=== PATIENT | male | born 1955 | race Caucasian/White ===

== ENCOUNTER → 2024-01-13 | Outpatient (CLI) | payer OTHER ==
[2024-01-13 11:42] LABS: African American GFR (CKD) >90 (>60 ml/min/1.73 sqM); Blood Urea Nitrogen 17 mg/dL (9-20); Non-African American GFR(CKD) 85 (>60 ml/min/1.73 sqM)
--- NOTE | 2024-01-13 12:26 | CT ---
EXAMINATION TYPE: CT angio chest CT DLP: 171.60 mGycm, Automated exposure control for dose reduction was used. DATE OF EXAM: 01/13/2024 12:16 PM COMPARISON: None CLINICAL INDICATION:Male, 68 years old with history of R06.02 SOB; SOB HX OF LEUKEMIA TECHNIQUE/CONTRAST: CTA scan of the thorax is performed with IV Contrast, patient injected with 100 mL of Isovue 370, pul monary embolism protocol. MIP images are created and reviewed. FINDINGS: Pulmonary Artery: There is no evidence for a filling defect within the pulmonary vasculature to sugge st acute pulmonary embolism. The pulmonary artery is mildly prominent measuring 3.0 cm in diameter. This can be seen with pulmonary arterial hypertension. Reflux of contrast in the IVC. Lungs/Pleura: Moderate size bilateral pleural effusions with associated atelectasis. Linear scarring within the left upper lobe. Patchy consolidation within the left upper lobe measuring up to 2.0 cm (s eries 5, image 72). Moderate centrilobular and paraseptal emphysematous changes. No pneumothorax. Airway: Large airways are patent. Heart: Heart is within normal limits for size. Trace pericardial effusion. Coronary artery calcificat ions. Vasculature: Ascending thoracic aortic aneurysm measuring up to 4.1 cm. Aortic root measures up to 3. 5 cm. Descending thoracic aorta measures up to 2.9 cm. Mild atherosclerotic calcification of the aort a and its branches. Right chest wall Mediport catheter tip terminating within the superior cavoatrial junction. Mediastinum: Mildly mildly enlarged precarinal and right hilar lymph nodes measuring 1 cm short axis. Musculoskeletal: No acute osseous abnormalities. Remote healed right-sided rib fractures. No aggressi ve osseous lesion. Mild multilevel degenerative disc disease. Soft Tissues: Mild diffuse anasarca. Lower neck: No significant findings. Upper Abdomen: No significant findings. IMPRESSION: 1. No evidence of pulmonary embolism. 2. Moderate-sized bilateral pleural effusions with associated atelectasis. 3. Left upper lobe patchy consolidation which may represent pneumonia versus atelectasis. Underlying neoplasm is not excluded. No prior imaging available for comparison. 4. Nonspecific mildly enlarged mediastinal and right hilar adenopathy which may related to reported l eukemia versus reactive. 5. Ascending thoracic aortic aneurysm measuring up to 4.1 cm. [facility], , 01/13/2024 12:24 PM
== END | disposition home or self-care (01) ==
LOC: RADCTMAIN 10:48
PROVIDERS: ATTEND Internal Medicine
DX: J90 Pleural effusion, not elsewhere classified (principal); R59.0 Localized enlarged lymph nodes; I71.21 Aneurysm of the ascending aorta, without rupture; R06.02 Shortness of breath; I70.0 Atherosclerosis of aorta; I27.21 Secondary pulmonary arterial hypertension; Z85.6 Personal history of leukemia
CPT/HCPCS: 82565; 84520; 71275; Q9967

== ENCOUNTER → 2024-02-13 | Outpatient (CLI) | payer OTHER ==
[2024-02-13 15:02] LABS: African American GFR (CKD) >90 (>60 ml/min/1.73 sqM); Blood Urea Nitrogen 13 mg/dL (9-20); Non-African American GFR(CKD) 83 (>60 ml/min/1.73 sqM)
--- NOTE | 2024-02-13 16:16 | CT ---
EXAMINATION TYPE: CT chest w con CT DLP: 166.6 mGycm, Automated exposure control for dose reduction was used. DATE OF EXAM: 02/13/2024 3:21 PM COMPARISON: CTA chest 01/13/2024. CLINICAL INDICATION:Male, 68 years old with history of C92.A1 ACUTE MYELOID LEUKEMIA W MULTILIN DYSPL ERLIN; PHH, Prostate CA, acute myeloid leukemia. TECHNIQUE: Multiple axial images were obtained through the chest following the administration of 100 cc of Isovue 300. . Coronal and sagittal reformats reviewed. FINDINGS: Lungs/Pleura: Moderate size bilateral pleural effusions with associated atelectasis redemonstrated. L inear scarring within the left upper lobe. Redemonstration of consolidation within the left upper lob e measuring up to 2.2 cm (series 4, image 15). Moderate centrilobular and paraseptal emphysematous ch anges. No pneumothorax. No new suspicious pulmonary nodules within the visualized aerated lungs. Airway: Large airways are patent. Heart: Heart is within normal limits for size. Trace pericardial effusion. Coronary artery calcificat ions. Vasculature: Ascending thoracic aortic aneurysm measuring up to 4.0 cm. Mild atherosclerotic calcific ation of the aorta and its branches. Right chest wall Mediport catheter tip terminating within the nath perior cavoatrial junction. No evidence of central filling defect to suggest pulmonary embolism. Mediastinum: Stable mildly enlarged precarinal and right hilar lymph nodes measuring 1.2 cm short axi s. Musculoskeletal: No acute osseous abnormalities. Remote healed right-sided rib fractures. No aggressi ve osseous lesion. Mild multilevel degenerative disc disease. No aggressive osseous lesion. Soft Tissues: Mild diffuse anasarca. Lower neck: No significant findings. Upper Abdomen: No significant findings. IMPRESSION: 1. Similar patchy left upper lobe consolidation from prior exam. May represent pneumonia versus under lying neoplasm. Correlate with prior imaging. 2. Similar moderate sized bilateral pleural effusions with associated atelectasis. 3. Stable nonspecific mildly enlarged mediastinal right hilar lymph nodes. May be related to reported leukemia versus reactive in etiology. [facility], , 02/13/2024 4:14 PM
== END | disposition home or self-care (01) ==
LOC: RADCTMAIN 14:12
PROVIDERS: ATTEND Internal Medicine
DX: C92.A1 Acute myeloid leukemia with multilineage dysplasia, in remission (principal); C61 Malignant neoplasm of prostate; I10 Essential (primary) hypertension; J90 Pleural effusion, not elsewhere classified
CPT/HCPCS: 82565; 84520; 71260; Q9967

== ENCOUNTER 2024-02-25 12:46 | Inpatient (IN) | payer OTHER, MEDICARE ==
--- NOTE | 2024-02-25 13:16 | ED ---
General Adult HPI - General Chief complaint: Weakness Stated complaint: Weakness Time Seen by Provider: 02/25/24 13:00 Source: patient, family, EMS, RN notes reviewed, old records reviewed Mode of arrival: EMS Limitations: no limitations - History of Present Illness Initial comments: This is a 68-year-old male who has a past medical history significant for leukemia. Patient comes in today because he has a fever he vomited x 1 is extremely weak and is in a lot more pain in his legs and a little bit of his abdomen. Patient denies any chest pain or difficulty breathing. Patient denies any cough. Patient denies any dysuria or hematuria. Patient has fallen the last couple days but only has a skin tear no other pain or problems from the falls. Patient never hit his head or hurt his neck - Related Data Home Medications Medication Instructions Recorded Confirmed Acyclovir [Zovirax] 800 mg PO BID 02/25/24 02/25/24 Calcium Carbonate/Vitamin D3 1 tab PO BID 02/25/24 02/25/24 [Calcium 500-Vit D3 5 Mcg (200 Iu)] Enasidenib Mesylate [Idhifa] 100 mg PO DAILY 02/25/24 02/25/24 Famotidine [Pepcid] 20 mg PO DAILY 02/25/24 02/25/24 Folic Acid 1 mg PO DAILY 02/25/24 02/25/24 LORazepam [Ativan] 0.5 mg PO TID PRN 02/25/24 02/25/24 dexAMETHasone See Taper PO DIRECTED 02/25/24 02/25/24 Allergies Allergy/AdvReac Type Severity Reaction Status Date / Time No Known Allergies Allergy Verified 02/25/24 14:44 Review of Systems ROS Statement: Those systems with pertinent positive or pertinent negative responses have been documented in the HPI. ROS Other: All systems not noted in ROS Statement are negative. Past Medical History Past Medical History: Cancer, Pneumonia Additional Past Medical History / Comment(s): Thyroid Cancer, Mixed Phenotype Acute Leukemia (MPAL). hx of prostate cancer Past Surgical History: Prostate Surgery Smoking Status: Former smoker Past Alcohol Use History: None Reported Past Drug Use History: None Reported General Exam - General Exam Comments Initial Comments: GENERAL: Patient is well-developed and well-nourished. Patient is nontoxic and well- hydrated and is in mild distress. ENT: Neck is soft and supple. No significant lymphadenopathy is noted. Oropharynx is clear. Moist mucous membranes. Neck has full range of motion without eliciting any pain. EYES: The sclera were anicteric and conjunctiva were pink and moist. Extraocular movements were intact and pupils were equal round and reactive to light. Eyelids were unremarkable. PULMONARY: Unlabored respirations. Good breath sounds bilaterally. No audible rales rhonchi or wheezing was noted. CARDIOVASCULAR: There is a regular rate and rhythm without any murmurs gallops or rubs. ABDOMEN: Soft and nontender with normal bowel sounds. SKIN: Skin abrasion on the right forearm NEUROLOGIC: Patient is alert and oriented x3. Cranial nerves II through XII are grossly intact. Motor and sensory are also intact. Normal speech, volume and content. Symmetrical smile. MUSCULOSKELETAL: Normal extremities with adequate strength and full range of motion. LYMPHATICS: No significant lymphadenopathy is noted PSYCHIATRIC: Normal psychiatric evaluation. Limitations: no limitations Course Vital Signs 02/25/24 02/25/24 02/25/24 12:52 14:15 14:28 Temperature 102.8 F H Pulse Rate 128 H Respiratory 18 Rate Blood Pressure 173/113 O2 Sat by Pulse 94 L Oximetry Fraction of 100 100 Inspired Oxygen (FIO2) 02/25/24 02/25/24 02/25/24 14:39 14:45 14:51 Temperature Pulse Rate 170 H 165 H 163 H Respiratory 26 H 26 H 26 H Rate Blood Pressure 181/118 153/103 146/94 O2 Sat by Pulse 100 100 100 Oximetry Fraction of Inspired Oxygen (FIO2) 02/25/24 02/25/24 02/25/24 15:06 15:13 15:28 Temperature 101.4 F H Pulse Rate 160 H 154 H Respiratory 18 Rate Blood Pressure 146/82 133/97 O2 Sat by Pulse 97 Oximetry Fraction of Inspired Oxygen (FIO2) Medical Decision Making - Medical Decision Making EKG is interpreted by myself EKG shows a sinus tachycardia at 132 bpm OR 125 QRS 91 QT interval 08 QTc is 386 per patient EKG shows no ST segment ovation or depression. . Was pt. sent in by a medical professional or institution (, PA, FINANCIAL SERVICES TECHNICIAN, urgent care, hospital, or alf...) When possible be specific @ -No Did you speak to anyone other than the patient for history (EMS, parent, family, police, friend...)? What history was obtained from this source @ -No Did you review nursing and triage notes (agree or disagree)? Why? @ -I reviewed and agree with nursing and triage notes Were old charts reviewed (outside hosp., previous admission, EMS record, old EKG, old radiological studies, urgent care reports/EKG's, alf records)? Report findings @ -No old charts were reviewed Differential Diagnosis? @ -Differential Dyspnea: Coronary syndrome, arrhythmia, tamponade, asthma, COPD, pulmonary embolism, pneumonia, pneumothorax, pulmonary effusion, anaphylaxis, diabetic ketoacidosis, flailed chest, pulmonary contusion, diaphragmatic rupture, anemia, neuromuscular, this is not meant to be an all-inclusive list. EKG interpreted by me (3pts min.). @ -As above X-rays interpreted by me (1pt min.). @ -Chest x-ray shows pulmonary edema questionable infiltrate CT interpreted by me (1pt min.). @ -None done U/S interpreted by me (1pt. min.). @ -None done What testing was considered but not performed or refused? (CT, X-rays, U/S, labs)? Why? @ -None What meds were considered but not given or refused? Why? @ -None Did you discuss the management of the patient with other professionals (prof cobian i.e. , PA, FINANCIAL SERVICES TECHNICIAN, lab, RT, psych nurse, secondary social studies teacher, barge master, teacher, radio division officer, caser up)? Give summary @ -I spoke with Dr. Britt he agreed to admit the patient admit the patient wrote admitting orders Was smoking cessation discussed for >3mins.? @ -No Was critical care preformed (if so, how long)? @ -35 minutes Were there social determinants of health that impacted care today? How? (Homelessness, low income, unemployed, alcoholism, drug addiction, transportation, low edu. Level, literacy, decrease access to med. care, fci, rehab)? @ -No Was there de-escalation of care discussed even if they declined (Discuss DNR or withdrawal of care, Hospice)? DNR status @ -No What co-morbidities impacted this encounter? (DM, HTN, Smoking, COPD, CAD, Cancer, CVA, ARF, Chemo, Hep., AIDS, mental health diagnosis, sleep apnea, morbid obesity)? @ -None Was patient admitted / discharged? Hospital course, mention meds given and route, prescriptions, significant lab abnormalities, going to OR and other pertinent info. @ -Patient had pulmonary edema and was having difficulty oxygenating so he was placed on BiPAP. Patient was also given 2 g of Rocephin because of the 102.5 fever and possible infiltrate on x-ray. Patient was also given Lasix. Patient was also given hydralazine for the high blood pressure. I spoke with Dr. Britt he agreed to admit the patient. Family was in the room there were 4 family members and they agreed that the patient should be just kept comfortable he wanted no aggressive measures Undiagnosed new problem with uncertain prognosis? @ -No Drug Therapy requiring intensive monitoring for toxicity (Heparin, Nitro, Insulin, Cardizem)? @ -No Were any procedures done? @ -No Diagnosis/symptom? @ -Acute pulmonary edema Acute, or Chronic, or Acute on Chronic? @ -Acute Uncomplicated (without systemic symptoms) or Complicated (systemic symptoms)? @ -Comp Side effects of treatment? @ -No Exacerbation, Progression, or Severe Exacerbation? @ -No Poses a threat to life or bodily function? How? (Chest pain, [place], [place], pneumonia, PE, COPD, DKA, ARF, appy, cholecystitis, CVA, Diverticulitis, Homicidal, Suicidal, threat to staff... and all critical care pts) @ -Yes this can lead to hypoxia and endorgan dysfunction or Diagnosis/symptom? @ -Pneumonia Acute, or Chronic, or Acute on Chronic? @ -Acute Uncomplicated (without systemic symptoms) or Complicated (systemic symptoms)? @ -Comp Side effects of treatment? @ -None Exacerbation, Progression, or Severe Exacerbation] @ -No Poses a threat to life or bodily function? @ -Yes this can lead to sepsis and poor perfusion and endorgan dysfunction Diagnosis/symptom? @ -Hypertensive emergency Acute, or Chronic, or Acute on Chronic? @ -Acute Uncomplicated (without systemic symptoms) or Complicated (systemic symptoms)? @ -Complicated Side effects of treatment? @ -None Exacerbation, Progression, or Severe Exacerbation] @ -No Poses a threat to life or bodily function? @ -Yes this can lead to poor perfusion as well as bony edema and lead to decompensation and endorgan dysfunction Repeat EKG was done it was interpreted by myself that shows sinus tachycardia at 149 bpm OR 118 QRS is 82 QT interval is 325 QTc is 410. Patient's EKG shows no ST segment elevation or depression. - Lab Data Result diagrams: 02/25/24 14:27 02/25/24 15:00 Lab Results 02/25/24 02/25/24 02/25/24 Range/Units 13:00 14:27 14:27 WBC 40.6 H (3.8-10.6) k/uL RBC 3.93 L (4.30-5.90) m/uL Hgb 13.3 (13.0-17.5) gm/dL Hct 41.8 (39.0-53.0) % MCV 106.5 H (80.0-100.0) fL MCH 33.9 (25.0-35.0) pg MCHC 31.8 (31.0-37.0) g/dL RDW 18.8 H (11.5-15.5) % Plt Count 297 (150-450) k/uL MPV 8.4 Neutrophils % (Manual) 88 % Lymphocytes % (Manual) 10 % Monocytes % (Manual) 3 % Neutrophils # (Manual) 35.73 H (1.3-7.7) k/uL Lymphocytes # (Manual) 4.06 (1.0-4.8) k/uL Monocytes # (Manual) 1.22 H (0-1.0) k/uL Nucleated RBCs 3 H (0-0) /100 WBC Manual Slide Review Performed Hypochromasia Moderate Anisocytosis Slight Macrocytosis Marked A PT (10.0-12.5) sec INR (<1.2) APTT (22.0-30.0) sec Sodium (137-145) mmol/L Potassium (3.5-5.1) mmol/L Chloride (98-107) mmol/L Carbon Dioxide (22-30) mmol/L Anion Gap mmol/L BUN (9-20) mg/dL Creatinine (0.66-1.25) mg/dL Est GFR (CKD-EPI)AfAm (>60 ml/min/1.73 sqM) Est GFR (CKD-EPI)NonAf (>60 ml/min/1.73 sqM) Glucose (74-99) mg/dL Plasma Lactic Acid Deyvi 3.1 H* (0.7-2.0) mmol/L Calcium (8.4-10.2) mg/dL Total Bilirubin (0.2-1.3) mg/dL AST (17-59) U/L ALT (4-49) U/L Alkaline Phosphatase (38-126) U/L Total Protein (6.3-8.2) g/dL Albumin (3.5-5.0) g/dL Urine Color Colorless Urine Appearance Clear (Clear) Urine pH 7.0 (5.0-8.0) Ur Specific [place] 1.009 (1.001-1.035) Urine Protein Trace H (Negative) Urine Glucose (UA) Negative (Negative) Urine Ketones Negative (Negative) Urine Blood Negative (Negative) Urine Nitrite Negative (Negative) Urine Bilirubin Negative (Negative) Urine Urobilinogen <2.0 (<2.0) mg/dL Ur Leukocyte Esterase Negative (Negative) Influenza Type A (PCR) (Not Detectd) Influenza Type B (PCR) (Not Detectd) RSV (PCR) (Not Detectd) SARS-CoV-2 (PCR) (Not Detectd) 02/25/24 02/25/24 02/25/24 Range/Units 14:27 14:30 15:00 WBC (3.8-10.6) k/uL RBC (4.30-5.90) m/uL Hgb (13.0-17.5) gm/dL Hct (39.0-53.0) % MCV (80.0-100.0) fL MCH (25.0-35.0) pg MCHC (31.0-37.0) g/dL RDW (11.5-15.5) % Plt Count (150-450) k/uL MPV Neutrophils % (Manual) % Lymphocytes % (Manual) % Monocytes % (Manual) % Neutrophils # (Manual) (1.3-7.7) k/uL Lymphocytes # (Manual) (1.0-4.8) k/uL Monocytes # (Manual) (0-1.0) k/uL Nucleated RBCs (0-0) /100 WBC Manual Slide Review Hypochromasia Anisocytosis Macrocytosis PT 12.1 (10.0-12.5) sec INR 1.1 (<1.2) APTT 18.0 L (22.0-30.0) sec Sodium 134 L (137-145) mmol/L Potassium 3.5 (3.5-5.1) mmol/L Chloride 104 (98-107) mmol/L Carbon Dioxide 16 L (22-30) mmol/L Anion Gap 14 mmol/L BUN 17 (9-20) mg/dL Creatinine 0.85 (0.66-1.25) mg/dL Est GFR (CKD-EPI)AfAm >90 (>60 ml/min/1.73 sqM) Est GFR (CKD-EPI)NonAf 89 (>60 ml/min/1.73 sqM) Glucose 144 H (74-99) mg/dL Plasma Lactic Acid Deyvi (0.7-2.0) mmol/L Calcium 8.1 L (8.4-10.2) mg/dL Total Bilirubin 1.4 H (0.2-1.3) mg/dL AST 21 (17-59) U/L ALT 19 (4-49) U/L Alkaline Phosphatase 64 (38-126) U/L Total Protein 6.4 (6.3-8.2) g/dL Albumin 4.1 (3.5-5.0) g/dL Urine Color Urine Appearance (Clear) Urine pH (5.0-8.0) Ur Specific [place] (1.001-1.035) Urine Protein (Negative) Urine Glucose (UA) (Negative) Urine Ketones (Negative) Urine Blood (Negative) Urine Nitrite (Negative) Urine Bilirubin (Negative) Urine Urobilinogen (<2.0) mg/dL Ur Leukocyte Esterase (Negative) Influenza Type A (PCR) Not Detected (Not Detectd) Influenza Type B (PCR) Not Detected (Not Detectd) RSV (PCR) Not Detected (Not Detectd) SARS-CoV-2 (PCR) Not Detected (Not Detectd) Critical Care Time Critical Care Time: Yes Total Critical Care Time: 35 Disposition Clinical Impression: Hypertensive emergency, Pneumonia, Pulmonary edema, History of leukemia Disposition: ADMITTED IP TO THIS HOSP Referrals: [facility],Clinic [Primary Care Provider] - 1-2 days Time of Disposition: 15:28
[2024-02-25 13:46] LABS: Appearance,Urine Clear (Clear); Bilirubin,Urine Negative (Negative); Blood,Urine Negative (Negative); Color,Urine Colorless; Glucose,Urine (UA) Negative (Negative); Ketones,Urine Negative (Negative); Leukocyte Esterase,Urine Negative (Negative); Nitrite,Urine Negative (Negative); Protein,Urine Trace (Negative); Specific Gravity,Urine 1.009 (1.001-1.035); Urobilinogen,Urine <2.0 mg/dL (<2.0)
--- NOTE | 2024-02-25 14:15 | XR ---
EXAMINATION TYPE: XR chest 2V DATE OF EXAM: 02/25/2024 2:05 PM COMPARISON: CT chest study dated 02/13/2024. CLINICAL INDICATION: Male, 68 years old with history of Fever; [facility] TECHNIQUE: XR chest 2V Frontal and lateral views of the chest. FINDINGS: Cardiac silhouette is within normal limits for size. Right chest wall port catheter distal catheter tip terminating at the cavoatrial junction. Patchy bilateral interstitial opacities and small bilateral pleural effusions. No pneumothorax. No ac [place]-cree osseous abnormality. IMPRESSION: Patchy bilateral interstitial opacities and small pleural effusions suggestive of pulmonary edema. Tom perimposed atypical infectious etiology would be possible as well. [facility], , 02/25/2024 2:13 PM
[2024-02-25] MEDS: ONDANSETRON 4 MG/2 ML VIAL IVP STA (14:23)
[2024-02-25] MEDS: FUROSEMIDE 10 MG/ML 4 ML VIAL IV STA (14:23)
[2024-02-25] MEDS: ACETAMINOPHEN TAB 500 MG TAB PO STA (14:24)
[2024-02-25] MEDS: IBUPROFEN 600 MG TAB PO STA (14:24)
[2024-02-25] MEDS: SODIUM CHLORIDE 0.9% 500 ML 500 ML IV SCH (14:25)
[2024-02-25] MEDS: HYDROmorphone 0.5 MG/0.5 ML SYRINGE IVP STA (14:25)
[2024-02-25] MEDS: LORazepam 2 MG/ML INJ IV STA (14:25)
[2024-02-25] MEDS: hydrALAZINE HCL 20 MG/ML 1 ML VIAL IVP STA (14:32)
[2024-02-25 14:34] LABS: Anisocytosis Slight; HCT 41.8 % (39.0-53.0); HGB 13.3 gm/dL (13.0-17.5); Hypochromasia Moderate; MCH 33.9 pg (25.0-35.0); MCHC 31.8 g/dL (31.0-37.0); MCV 106.5 fL (80.0-100.0); Macrocytosis Marked; Mean Platelet Volume 8.4; Platelet Count 297 k/uL (150-450); RBC 3.93 m/uL (4.30-5.90); RDW 18.8 % (11.5-15.5)
[2024-02-25] MEDS: cefTRIAXone IN SWFI 1,000 MG/10 ML SYRINGE IVP STA (14:35)
[2024-02-25 15:07] LABS: Lymphocytes # (M) 4.06 k/uL (1.0-4.8); Monocytes # (M) 1.22 k/uL (0-1.0); Neutrophils # (M) 35.73 k/uL (1.3-7.7); Neutrophils % (M) 88 %; Nucleated Red Blood Cells 3 /100 WBC (0-0); Total Cells Counted 200; WBC 40.6 k/uL (3.8-10.6)
--- NOTE | 2024-02-25 15:14 | XR ---
EXAMINATION TYPE: XR chest 1V portable DATE OF EXAM: 02/25/2024 3:05 PM COMPARISON: Previous chest radiograph 04/27/2023. CLINICAL INDICATION: Male, 68 years old with history of FRANSISCA; [facility] TECHNIQUE: XR chest 1V portable Frontal view of the chest. FINDINGS: Cardiac silhouette stable. Patchy bilateral interstitial opacities and increasing moderate-sized right pleural effusion. Small left pleural effusion. Increasing fluid along the right fissure. Right chest wall port catheter with distal catheter tip terminating in stable positioning. No pneumot horax. No acute osseous abnormality. IMPRESSION: Slightly worsening aeration of the lungs compared to prior study as described above. [facility], , 02/25/2024 3:12 PM
[2024-02-25 15:17] LABS: INR 1.1 (<1.2); Prothrombin Time 12.1 sec (10.0-12.5)
[2024-02-25 15:26] LABS: ALT 19 U/L (4-49); AST 21 U/L (17-59); African American GFR (CKD) >90 (>60 ml/min/1.73 sqM); Albumin 4.1 g/dL (3.5-5.0); Alkaline Phosphatase 64 U/L (38-126); Anion Gap 14 mmol/L; Blood Urea Nitrogen 17 mg/dL (9-20); Calcium 8.1 mg/dL (8.4-10.2); Carbon Dioxide 16 mmol/L (22-30); Chloride 104 mmol/L (98-107); Glucose 144 mg/dL (74-99); Non-African American GFR(CKD) 89 (>60 ml/min/1.73 sqM); Potassium 3.5 mmol/L (3.5-5.1); Sodium 134 mmol/L (137-145); Total Bilirubin 1.4 mg/dL (0.2-1.3); Total Protein 6.4 g/dL (6.3-8.2)
[2024-02-25] MEDS ORDERED: DOCUSATE 100 MG CAP PO PRN (15:26)
[2024-02-25] MEDS ORDERED: MORPHINE SULFATE 4 MG/ML SYRINGE IVP PRN ×2 (15:26→16:15)
[2024-02-25] MEDS ORDERED: HYDROcodone/APAP 5-325MG 1 EACH TAB PO PRN (15:26)
[2024-02-25] MEDS ORDERED: bisacodyL 5 MG TABLET.DR PO PRN (15:26)
[2024-02-25] MEDS ORDERED: ACETAMINOPHEN TAB 325 MG TAB PO PRN (15:26)
[2024-02-25] MEDS ORDERED: ONDANSETRON 4 MG/2 ML VIAL IVP PRN (15:26)
[2024-02-25] MEDS ORDERED: NALOXONE 0.4 MG/ML 1 ML VIAL IV PRN (15:26)
[2024-02-25] MEDS ORDERED: PNEUMONIA PROTOCOL UTILIZED 1 EACH MISC PO PRN (15:28)
[2024-02-25] MEDS ORDERED: VANCOMYCIN IV PER PHARMACY 1 EACH MISC MISCELLANE PRN (15:29)
[2024-02-25 15:33] LABS: NT-Pro-B-Type Natriuretic Pept 15300 pg/mL
[2024-02-25 15:50] LABS: ABG Base Excess -2.1 mmol/L; ABG HCO3 22 mmol/L (21-25); ABG Oxygen Saturation >100.0 % (94-97); ABG PCO2 34 mmHg (35-45); ABG PH 7.42 (7.35-7.45); ABG PO2 254 mmHg (83-108); ABG TCO2 23 mmol/L (19-24); Allen Test Performed? Yes
[2024-02-25] MEDS ORDERED: CEFEPIME 2 GM in SODIUM CHLORIDE 0.9% 100 ML IVPB SCH (16:00)
[2024-02-25] MEDS: ACETAMINOPHEN IV (For NPO) 1,000 MG in EMPTY BAG 1 BAG IVPB STA (16:11)
[2024-02-25] MEDS: IBUPROFEN IV 600 MG in SODIUM CHLORIDE 0.9% 250 ML IV ONE (16:12)
[2024-02-25] MEDS ORDERED: GLYCOPYRROLATE 0.2 MG/ML 2 ML VIAL IVP PRN (16:13)
[2024-02-25] MEDS: VANCOMYCIN 1,000 MG in SODIUM CHLORIDE 0.9% 250 ML IVPB STA (16:15)
[2024-02-25] MEDS: CEFEPIME 1 GM in SODIUM CHLORIDE 0.9% 50 ML IVPB STA (16:15)
[2024-02-25] MEDS: AZITHROMYCIN 500 MG in SODIUM CHLORIDE 0.9% 250 ML IVPB STA (16:15)
--- NOTE | 2024-02-25 16:26 | P.HPIM ---
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 Over the last 2 to 3 days, patient's dyspnea has been significantly worsening, prompting his evaluation in the emergency room today. In addition, he has noticed fevers and chills. At the time my evaluation, history supplemented by his sons were at bedside, as patient was too encephalopathic to provide me any history. Case was also discussed with the emergency room physician. According to patient's family, patient is very well-known his wishes regarding end-of-life care and does not wish to pursue any aggressive treatment at this time. In the emergency room, patient was febrile to a Tmax of 102.8. His blood pressure was 173/113. Heart rates were in the 160s. CBC demonstrated leukocy tosis to 40.6. Complete metabolic panel showed sodium of 134, CO2 of 16, anion gap of 14, total bilirubin of 1.4. BNP [place] [address]. Lactic acid was 3.1. Urinalysis showed trace protein, otherwise unremarkable. Influenza A, B, RSV, COVID were negative. Chest x-ray shows bilateral interstitial opacities and increasing moderate right pleural effusion. EKG shows low amplitude QRS throughout, regular narrow complex tachycardia. All Systems reviewed and pertinent positives and negatives noted in HPI, all other symptoms are negative Gen: In severe distress from dyspnea on pain, toxic appearing, cachectic, frail elderly individual HEENT: normocephalic, atraumatic, mucous membranes moist, dentition is poor CVS: perfusing all extremities well, + pitting edema, Respiratory: symmetric chest expansion, accessory muscle use is present, GI: soft, NTTP, ND, : no suprapubic tenderness, no CVA tenderness MSK/Derm: no rashes, cyanosis Neuro: CN II-XII intact, no motor weakness, Assessment/plan: Severe sepsis with encephalopathy and acute hypoxemic respiratory failure Healthcare associated pneumonia versus differentiation syndrome Mixed acute leukemia, on chemotherapy and immunotherapy, patient is immunosuppressed -Patient is opted for comfort measures only -DNR/DNI -Morphine drip, titrate for comfort -Ativan as needed for anxiety -Glycopyrrolate as needed for secretions -Discontinue telemetry -Remove BiPAP and place onto nasal cannula once comfortable on morphine drip Past Medical History Past Medical History: Cancer, Pneumonia Additional Past Medical History / Comment(s): Thyroid Cancer, Mixed Phenotype Ac elisa Leukemia (MPAL). hx of prostate cancer Past Surgical History: Prostate Surgery Smoking Status: Former smoker Past Alcohol Use History: None Reported Past Drug Use History: None Reported Medications and Allergies Home Medications Medication Instructions Recorded Confirmed Type Acyclovir [Zovirax] 800 mg PO BID 02/25/24 02/25/24 History Calcium Carbonate/Vitamin D3 1 tab PO BID 02/25/24 02/25/24 History [Calcium 500-Vit D3 5 Mcg (200 Iu)] Enasidenib Mesylate [Idhifa] 100 mg PO DAILY 02/25/24 02/25/24 History Famotidine [Pepcid] 20 mg PO DAILY 02/25/24 02/25/24 History Folic Acid 1 mg PO DAILY 02/25/24 02/25/24 History LORazepam [Ativan] 0.5 mg PO TID PRN 02/25/24 02/25/24 History dexAMETHasone See Taper PO DIRECTED 02/25/24 02/25/24 History Allergies Allergy/AdvReac Type Severity Reaction Status Date / Time No Known Allergies Allergy Verified 02/25/24 14:44 Physical Exam Osteopathic Statement: *. No significant issues noted on an osteopathic structural exam other than those noted in the History and Physical/Consult. Vitals: Vital Signs Temp Pulse Resp BP Pulse Ox FiO2 02/25/24 16:08 140 H 21 112/82 98 02/25/24 15:28 154 H 133/97 02/25/24 15:13 101.4 F H 02/25/24 15:06 160 H 18 146/82 97 02/25/24 14:51 163 H 26 H 146/94 100 02/25/24 14:45 165 H 26 H 153/103 100 02/25/24 14:39 170 H 26 H 181/118 100 02/25/24 14:28 100 02/25/24 14:15 100 02/25/24 12:52 102.8 F H 128 H 18 173/113 94 L Intake and Output 02/25/24 02/25/24 02/25/24 06:59 14:59 22:59 Output Total 600 Balance -600 Output: Urine 600 Uretheral (Zambrano) 600 Other: Weight 56.699 kg Results CBC & Chem 7: 02/25/24 14:27 02/25/24 15:00 Labs: Abnormal Lab Results - Last 24 Hours (Table) 02/25/24 02/25/24 02/25/24 Range/Units 13:00 14:27 14:27 WBC 40.6 H (3.8-10.6) k/uL RBC 3.93 L (4.30-5.90) m/uL MCV 106.5 H (80.0-100.0) fL RDW 18.8 H (11.5-15.5) % Neutrophils # (Manual) 35.73 H (1.3-7.7) k/uL Monocytes # (Manual) 1.22 H (0-1.0) k/uL Nucleated RBCs 3 H (0-0) /100 WBC Macrocytosis Marked A APTT (22.0-30.0) sec ABG pCO2 (35-45) mmHg ABG pO2 (83-108) mmHg ABG O2 Saturation (94-97) % Sodium (137-145) mmol/L Carbon Dioxide (22-30) mmol/L Glucose (74-99) mg/dL Plasma Lactic Acid Deyvi 3.1 H* (0.7-2.0) mmol/L Calcium (8.4-10.2) mg/dL Total Bilirubin (0.2-1.3) mg/dL Urine Protein Trace H (Negative) 02/25/24 02/25/24 02/25/24 Range/Units 14:30 15:00 15:46 WBC (3.8-10.6) k/uL RBC (4.30-5.90) m/uL MCV (80.0-100.0) fL RDW (11.5-15.5) % Neutrophils # (Manual) (1.3-7.7) k/uL Monocytes # (Manual) (0-1.0) k/uL Nucleated RBCs (0-0) /100 WBC Macrocytosis APTT 18.0 L (22.0-30.0) sec ABG pCO2 34 L (35-45) mmHg ABG pO2 254 H (83-108) mmHg ABG O2 Saturation >100.0 H (94-97) % Sodium 134 L (137-145) mmol/L Carbon Dioxide 16 L (22-30) mmol/L Glucose 144 H (74-99) mg/dL Plasma Lactic Acid Deyvi (0.7-2.0) mmol/L Calcium 8.1 L (8.4-10.2) mg/dL Total Bilirubin 1.4 H (0.2-1.3) mg/dL Urine Protein (Negative)
[2024-02-25] MEDS: MORPHINE SULFATE (100 MG/2 ML) 100 MG in SODIUM CHLORIDE 0.9% 100 ML IV SCH (16:52)
[2024-02-25] MEDS ORDERED: KETOROLAC 15 MG/ML 1 ML VIAL IVP PRN (17:54)
[2024-02-25] MEDS ORDERED: ACYCLOVIR 800 MG TAB PO SCH (21:00)
[2024-02-25] MEDS: CALCIUM CARB-VIT D 500 MG-5 MCG TAB PO SCH (23:16)
[2024-02-26] MEDS ORDERED: CEFEPIME 1 GM in SODIUM CHLORIDE 0.9% 50 ML IVPB SCH
[2024-02-26] MEDS: diphenhydrAMINE 50 MG/ML 1 ML VIAL IVP PRN (01:26)
[2024-02-26 02:44] VITALS: BP 93/58; PULSE 104; TEMP 97.1
[2024-02-26] MEDS ORDERED: VANCOMYCIN 1,000 MG in SODIUM CHLORIDE 0.9% 250 ML IVPB SCH (06:00)
[2024-02-26] MEDS ORDERED: AZITHROMYCIN 500 MG in SODIUM CHLORIDE 0.9% 250 ML IVPB SCH (09:00)
[2024-02-26] MEDS: FAMOTIDINE 20 MG TAB PO SCH (09:01)
[2024-02-26] MEDS: ENOXAPARIN 40 MG/0.4 ML SYRINGE SQ SCH (09:01)
[2024-02-26] MEDS: FOLIC ACID 1 MG TAB PO SCH (09:01)
[2024-02-26] MEDS: ACETAMINOPHEN IV (For NPO) 1,000 MG in EMPTY BAG 1 BAG IVPB PRN (09:17)
[2024-02-26 10:50] VITALS: RESP 20
--- NOTE | 2024-02-26 11:34 | P.PN ---
Subjective Progress Note Date: 02/26/24 Pt appears somnolent, but comfortable on morphine gtt today. family at bedside and all questions/concerns were answered. 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 In the emergency room, patient was febrile to a Tmax of 102.8. His blood pressure was 173/113. Heart rates were in the 160s. CBC demonstrated leukocytosis to 40.6. Complete metabolic panel showed sodium of 134, CO2 of 16, anion gap of 14, total bilirubin of 1.4. BNP [place] [address]. Lactic acid was 3.1. Urinalysis showed trace protein, otherwise unremarkable. Influenza A, B, RSV, COVID were negative. Chest x-ray shows bilateral interstitial opacities and increasing moderate right pleural effusion. EKG shows low amplitude QRS throughout, regular narrow complex tachycardia. Assessment/plan: Severe sepsis with encephalopathy and acute hypoxemic respiratory failure Healthcare associated pneumonia versus differentiation syndrome Mixed acute leukemia, on chemotherapy and immunotherapy, patient is immunosuppressed -Patient is opted for comfort measures only -DNR/DNI -Morphine drip, titrate for comfort -Ativan as needed for anxiety -Glycopyrrolate as needed for secretions -Discontinue telemetry -Hospice consulted for informational Objective - Vital Signs Vital signs: Vital Signs Temp 97.1 F L 02/26/24 01:11 Pulse 104 H 02/26/24 01:11 Resp 20 02/26/24 10:46 BP 93/58 02/26/24 01:11 Pulse Ox 85 L 02/26/24 01:11 FiO2 100 02/25/24 14:28 Intake & Output 02/25/24 02/26/24 02/26/24 18:59 06:59 18:59 Intake Total 1.088 11.118 28.75 Output Total 1300 300 Balance -1298.912 -288.882 28.75 Weight 56.699 kg Intake: Intake, IV Titration 1.088 11.118 28.75 Amount ACETAMINOPHEN IV (For NPO 0 ) 1,000 mg In Empty Bag 1 bag @ 400 mls/hr IVPB Q6HR PRN Rx#:[id number] Morphine Sulfate (100 mg/ 1.088 11.118 28.75 2 ml) 100 mg In Sodium Chloride 0.9% 100 ml @ 1 MG/HR 1.02 mls/hr IV . Q24H [facility] Rx#:[id number] Output: Urine 1300 300 Uretheral (Zambrano) 600 Other: Voiding Method Indwelling Catheter Indwelling Catheter - Labs CBC & Chem 7: 02/25/24 14:27 02/25/24 15:00 Labs: Abnormal Lab Results - Last 24 Hours (Table) 02/25/24 02/25/24 02/25/24 Range/Units 13:00 14:27 14:27 WBC 40.6 H (3.8-10.6) k/uL RBC 3.93 L (4.30-5.90) m/uL MCV 106.5 H (80.0-100.0) fL RDW 18.8 H (11.5-15.5) % Neutrophils # (Manual) 35.73 H (1.3-7.7) k/uL Monocytes # (Manual) 1.22 H (0-1.0) k/uL Nucleated RBCs 3 H (0-0) /100 WBC Macrocytosis Marked A APTT (22.0-30.0) sec ABG pCO2 (35-45) mmHg ABG pO2 (83-108) mmHg ABG O2 Saturation (94-97) % Sodium (137-145) mmol/L Carbon Dioxide (22-30) mmol/L Glucose (74-99) mg/dL Plasma Lactic Acid Deyvi 3.1 H* (0.7-2.0) mmol/L Calcium (8.4-10.2) mg/dL Total Bilirubin (0.2-1.3) mg/dL Urine Protein Trace H (Negative) 02/25/24 02/25/24 02/25/24 Range/Units 14:30 15:00 15:46 WBC (3.8-10.6) k/uL RBC (4.30-5.90) m/uL MCV (80.0-100.0) fL RDW (11.5-15.5) % Neutrophils # (Manual) (1.3-7.7) k/uL Monocytes # (Manual) (0-1.0) k/uL Nucleated RBCs (0-0) /100 WBC Macrocytosis APTT 18.0 L (22.0-30.0) sec ABG pCO2 34 L (35-45) mmHg ABG pO2 254 H (83-108) mmHg ABG O2 Saturation >100.0 H (94-97) % Sodium 134 L (137-145) mmol/L Carbon Dioxide 16 L (22-30) mmol/L Glucose 144 H (74-99) mg/dL Plasma Lactic Acid Deyvi (0.7-2.0) mmol/L Calcium 8.1 L (8.4-10.2) mg/dL Total Bilirubin 1.4 H (0.2-1.3) mg/dL Urine Protein (Negative)
[2024-02-26 14:25] VITALS: BMI 18.4
[2024-02-26] MEDS: LORazepam 2 MG/ML INJ IV PRN (14:46)
--- NOTE | 2024-02-26 18:41 | P.DS ---
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 In the emergency room, patient was febrile to a Tmax of 102.8. His blood pressure was 173/113. Heart rates were in the 160s. CBC demonstrated leukocytosis to 40.6. Complete metabolic panel showed sodium of 134, CO2 of 16, anion gap of 14, total bilirubin of 1.4. [place] [address]. Lactic acid was 3.1. Urinalysis showed trace protein, otherwise unremarkable. Influenza A, B, RSV, COVID were negative. Chest x-ray shows bilateral interstitial opacities and increasing moderate right pleural effusion. EKG shows low amplitude QRS throughout, regular narrow complex tachycardia. Pt declined aggressive interventions and requested comfort measures only. Patient was admitted for comfort care, and was treated for air hunger, anxiety. He peacefully with family around on 02/25 at 18:29. Plan - Discharge Summary Discharge Rx Participant: No New Discharge Prescriptions: No Action dexAMETHasone See Taper PO DIRECTED Famotidine [Pepcid] 20 mg PO DAILY Enasidenib Mesylate [Idhifa] 100 mg PO DAILY Calcium Carbonate/Vitamin D3 [Calcium 500-Vit D3 5 Mcg (200 Iu)] 1 tab PO BID Acyclovir [Zovirax] 800 mg PO BID LORazepam [Ativan] 0.5 mg PO TID PRN PRN Reason: Anxiety Folic Acid 1 mg PO DAILY Discharge Medication List Acyclovir [Zovirax] 800 mg PO BID 02/25/24 [History] Calcium Carbonate/Vitamin D3 [Calcium 500-Vit D3 5 Mcg (200 Iu)] 1 tab PO BID 02/25/24 [History] Enasidenib Mesylate [Idhifa] 100 mg PO DAILY 02/25/24 [History] Famotidine [Pepcid] 20 mg PO DAILY 02/25/24 [History] Folic Acid 1 mg PO DAILY 02/25/24 [History] LORazepam [Ativan] 0.5 mg PO TID PRN 02/25/24 [History] dexAMETHasone See Taper PO DIRECTED 02/25/24 [History] Follow up Appointment(s)/Referral(s): [facility],Clinic [Primary Care Provider] - 1-2 days
== END 2024-02-26 21:04 | disposition expired | DRG 871 ==
LOC: EC 12:46 → 3SCARD 15:28 → 5NMEDONC 16:13 → 4SSUR 17:08
PROVIDERS: ADMIT Internal Medicine; ATTEND Internal Medicine
PROC: 5A09357 Assistance with Respiratory Ventilation, Less than 24 Consecutive Hours, Continuous Positive Airway Pressure (ICD-10-PCS; principal; 2024-02-25)
DX: A41.9 Sepsis, unspecified organism (principal); G93.41 Metabolic encephalopathy; J96.01 Acute respiratory failure with hypoxia; J81.0 Acute pulmonary edema; J18.9 Pneumonia, unspecified organism; C95.00 Acute leukemia of unspecified cell type not having achieved remission; J91.8 Pleural effusion in other conditions classified elsewhere; I16.1 Hypertensive emergency; Z51.5 Encounter for palliative care; Z66 Do not resuscitate; R64 Cachexia; D84.821 Immunodeficiency due to drugs; Z68.1 Body mass index [BMI] 19.9 or less, adult; R65.20 Severe sepsis without septic shock; F41.9 Anxiety disorder, unspecified; R54 Age-related physical debility; Y95 Nosocomial condition; Z87.891 Personal history of nicotine dependence; Z85.850 Personal history of malignant neoplasm of thyroid; Z85.46 Personal history of malignant neoplasm of prostate; Z79.899 Other long term (current) drug therapy; Z79.60 Long term (current) use of unspecified immunomodulators and immunosuppressants
CPT/HCPCS: 36415; 36600; 71045; 71046; 80053; 81003; 82805; 83605; 83880; 84145; 85025; 85610; 85730; 87040; 87449; 87636; 93005; 94660; 96361; 96365; 96375; 99291